=== PATIENT | male | born 1940 | race Caucasian/White ===

== ENCOUNTER 2024-10-27 13:32 | Emergency (ER) | payer MEDICARE ==
[2024-10-27] MEDS ORDERED: Sodium Chloride 0.9% 10 ML Syringe FLUSH PRN ×2 (13:35→14:46)
[2024-10-27] MEDS ORDERED: diazePAM 10 MG/2 ML Syringe IVPUSH ONE (13:36)
[2024-10-27 14:06] LABS: BASOPHILS ABSOLUTE AUTO 0.03 K/uL (0.00-0.20); BASOPHILS PERCENT AUTO 0.3 % (0.0-2.0); EOSINOPHILS ABSOLUTE AUTO 0.91 K/uL (0.00-0.50); EOSINOPHILS PERCENT AUTO 9.5 % (0.0-5.0); HEMATOCRIT 42.9 % (39.0-49.0); HEMOGLOBIN 13.4 g/dL (13.1-16.8); IMMATURE GRAN ABSOLUTE AUTO 0.12 10^3/uL (0.00-0.04); IMMATURE GRAN PERCENT AUTO 1.3 % (0.0-0.4); LYMPHOCYTES ABSOLUTE AUTO 4.45 K/uL (0.50-3.50); LYMPHOCYTES PERCENT AUTO 46.6 % (10.0-50.0); MEAN CORPUSCULAR HEMOGLOBIN 31.9 pg (28.2-33.3); MEAN CORPUSCULAR HGB CONC 31.2 g/dL (31.7-36.0); MEAN CORPUSCULAR VOLUME 102.1 fL (84.0-98.0); MONOCYTES ABSOLUTE AUTO 1.05 K/uL (0.00-1.00); NEUTROPHILS ABSOLUTE AUTO 2.99 K/uL (1.40-7.00); NEUTROPHILS PERCENT AUTO 31.3 % (45.0-80.0); PLATELET COUNT,PLT 297 K/uL (150-350); RED CELL DISTRIBUTION WIDTH 12.4 % (11.2-14.1); WHITE BLOOD CELL COUNT,WBC 9.6 K/uL (4.0-10.2)
[2024-10-27 14:42] LABS: LACTIC ACID 15.4 mmol/L (0.4-2.0)
[2024-10-27] MEDS ORDERED: EPINEPHrine 1:10,000 1 MG/10 ML Syringe IVPUSH ONE ×4 (14:43→14:46)
[2024-10-27 14:52] LABS: ALANINE AMINOTRANSFERASE,ALT 39 U/L (12-78); ALBUMIN 3.5 g/dL (3.4-5.0); ALKALINE PHOSPHATASE 114 IU/L (46-116); ANION GAP 23.4 meq/L (7-15); ASPARTATE AMNIOTRANSFERASE,AST 40 U/L (15-37); BLOOD UREA NITROGEN,BUN 23 mg/dL (7-18); CARBON DIOXIDE,CO2 22.2 mmol/L (21.0-32.0); CHLORIDE,CL 106 mmol/L (98-107); CREATININE 1.19 mg/dL (0.51-1.17); ESTIMATED GFR 59 mL/min (>=60); GLUCOSE RANDOM 151 mg/dL (70-99); MAGNESIUM 2.2 mg/dL (1.8-2.4); POTASSIUM,K 4.6 mmol/L (3.5-5.1); PRO B-TYPE NATRIUR PEPT,BNPPRO 4215 pg/mL (0-125); PROTEIN TOTAL,TP 6.9 g/dL (6.4-8.2); SODIUM,NA 147 mmol/L (136-145)
== END 2024-10-27 16:24 | disposition expired ==
LOC: LL.ED 13:32
DX: I46.9 Cardiac arrest, cause unspecified (principal)
CPT/HCPCS: 31500; 31605; 36415; 36680; 80053; 83605; 83735; 83880; 84484; 85025; 92950; 99285; J3360; J0171